=== PATIENT | female | born 1975 | race Caucasian/White ===

== ENCOUNTER 2019-12-12 00:12 | Emergency (ER) | payer OTHER | END 2019-12-12 00:22 | disposition left against medical advice (07) | LOC: DL.ED 00:12 | DX: Z53.21 Procedure and treatment not carried out due to patient leaving prior to being seen by health care provider (principal) ==

== ENCOUNTER 2020-02-06 07:15 | Day surgery (SDC) | payer OTHER ==
[~2020-02-06 07:15] MED LIST: Midazolam 1 MG/ML 2 ML SDV ONE; fentaNYL 100 MCG/2 ML SDV ONE
[2020-02-06] MEDS ORDERED: fentaNYL 100 MCG/2 ML SDV IV ONE ×5 (07:16→08:42)
[2020-02-06] MEDS ORDERED: Midazolam 1 MG/ML 2 ML SDV IV ONE ×8 (07:16→08:40)
[2020-02-06] MEDS ORDERED: Dextrose 5%-0.45% NaCl 1,000 ML IV SCH (07:30)
--- NOTE | 2020-02-06 14:26 | OR ---
DATE: 02/06/2020 PREOPERATIVE DIAGNOSIS: Family history of colon cancer. POSTOPERATIVE DIAGNOSIS: Family history of colon cancer. PROCEDURE: Total colonoscopy. ANESTHESIA: Conscious sedation with IV Versed and fentanyl. SPECIMEN: None. OPERATIVE FINDINGS: Normal colonoscopy. RECOMMENDATIONS: Followup colonoscopy in 5 years. INDICATION FOR PROCEDURE: This 44-year-old female has a family history of colon cancer. PROCEDURE IN DETAIL: After adequate preparation, a colonoscope was inserted into the rectum. This was easily passed all the way to the cecum. Confirmation of the cecum was made by visualization of the ileocecal valve and palpation in the right lower quadrant. The bowel prep was excellent. On withdrawal of the scope, no abnormalities were noted. Anal and rectal examinations are also normal. Air was suctioned from the colon and the scope removed. [facility] /[id number]
== END 2020-02-06 10:35 | disposition home or self-care (01) ==
LOC: DL.ENDO 07:15
PROVIDERS: ATTEND Surgery
DX: Z12.11 Encounter for screening for malignant neoplasm of colon (principal); Z80.0 Family history of malignant neoplasm of digestive organs; Z88.2 Allergy status to sulfonamides; Z98.890 Other specified postprocedural states
CPT/HCPCS: 45378; J2250; J3010; J7042